=== PATIENT | female | born 1955 | race Caucasian/White ===

== ENCOUNTER 2022-05-21 10:10 | Outpatient (CLI) | payer OTHER | END 2022-05-21 10:11 | disposition home or self-care (01) | LOC: CSHLAB 10:10 | PROVIDERS: ATTEND Internal Medicine Gastroenterology | DX: Z20.822 Contact with and (suspected) exposure to COVID-19 (principal); R93.5 Abnormal findings on diagnostic imaging of other abdominal regions, including retroperitoneum | CPT/HCPCS: 87811 ==

== ENCOUNTER 2022-05-26 07:32 | Day surgery (SDC) | payer OTHER ==
[2022-05-22 13:24] VITALS: BMI 27.6
[~2022-05-26 07:32] MED LIST: Lidocaine 2% MPF 10 ML AMP (For Epidural Use) ONE; PROPOFOL 60 ML ONE
[2022-05-26] MEDS ORDERED: Lidocaine 1% MPF 2 ML VIAL ONE (07:42)
[2022-05-26] MEDS ORDERED: GoLYTELY 4,000 ml Bottle PO ONE (08:15)
== END 2022-05-26 16:08 | disposition home or self-care (01) ==
LOC: CSHSDC 07:32
PROVIDERS: ATTEND Internal Medicine Gastroenterology
PROC: 0DJD8ZZ Inspection of Lower Intestinal Tract, Via Natural or Artificial Opening Endoscopic (ICD-10-PCS; principal; 2022-05-26)
DX: K64.9 Unspecified hemorrhoids (principal); K59.09 Other constipation; D64.9 Anemia, unspecified; K21.9 Gastro-esophageal reflux disease without esophagitis; F41.9 Anxiety disorder, unspecified; F32.A Depression, unspecified; Z85.3 Personal history of malignant neoplasm of breast; Z85.830 Personal history of malignant neoplasm of bone; Z86.718 Personal history of other venous thrombosis and embolism; Z86.711 Personal history of pulmonary embolism; Z79.01 Long term (current) use of anticoagulants; Z79.899 Other long term (current) drug therapy; Z88.8 Allergy status to other drugs, medicaments and biological substances; Z20.822 Contact with and (suspected) exposure to COVID-19
CPT/HCPCS: J2704